=== PATIENT | male | born 1990 | race Two or more races ===

== ENCOUNTER 2018-06-10 00:19 | Emergency (ER) | payer OTHER ==
[~2018-06-10] VITALS: Ht 170.2 cm; Wt 63.5 kg
[2018-06-10] MEDS ORDERED: NKM (00:31)
--- NOTE | 2018-06-10 00:41 | Emergency Room Report ---
History of Present Illness General Chief Complaint: Upper Extremity Injury Source: Patient Present Illness HPI Is a 27-year-old male with no past medical history. He presents with chief complaint of back pain after a fall. He was at work and he slipped on some fabric and fell backward hitting his lower back on the ground. Most of his pain to lower back but he also has neck pain and shoulder pain. No loss of consciousness. No head injury. Pain is 7 out of 10. Worse with movement. Occur couple hours ago. No radiation of pain. Movement made it worse. Allergies: Coded Allergies: No Known Allergies (Unverified , 06/10/18) Patient History Past Medical History: see triage record, old chart reviewed Past Surgical History: none Pertinent Family History: none Social History: Denies: smoking Immunizations: other Reviewed Nursing Documentation: PMH: Agreed; PSxH: Agreed Nursing Documentation-PMH Past Medical History: No Stated History Review of Systems Eye: Denies: eye pain, blurred vision ENT: Denies: ear pain, nose congestion, throat swelling Respiratory: Denies: cough, shortness of breath Cardiovascular: Denies: chest pain, palpitations Gastrointestinal: Denies: abdominal pain, diarrhea, nausea, vomiting Musculoskeletal: Reports: back pain; Denies: joint pain Skin: Denies: rash Neurological: Denies: headache, numbness Endocrine: Denies: increased thirst, increased urine Hematologic/Lymphatic: Denies: easy bruising All Other Systems: negative except mentioned in HPI Physical Exam Vital Signs Date Time Temp Pulse Resp B/P (MAP) Pulse Ox O2 Delivery O2 Flow Rate FiO2 06/10/18 00:26 98.1 65 18 130/67 99 Room Air 98.1 vitals normal Sp02 EP Interpretation: reviewed, normal General Appearance: well appearing, no apparent distress, alert Head: normocephalic, atraumatic Eyes: bilateral eye PERRL, bilateral eye EOMI ENT: hearing grossly normal, normal pharynx Neck: full range of motion, supple, no meningismus Respiratory: chest non-tender, lungs clear, normal breath sounds Cardiovascular #1: regular rate, rhythm, no murmur Gastrointestinal: normal bowel sounds, non tender, no mass, no organomegaly, no bruit, non-distended Musculoskeletal: back normal - no deformity. Tenderness to the lower lumbar area., gait/station normal, normal range of motion Neurologic: alert, oriented x3 Psychiatric: mood/affect normal Skin: warm/dry Medical Decision Making Diagnostic Impression: Primary Impression: Strain of lumbar region Qualified Codes: S39.012A - Strain of muscle, fascia and tendon of lower back , initial encounter Additional Impression: Fall Qualified Codes: W19.XXXA - Unspecified fall, initial encounter ER Course Is without soft tissue injury from mechanical fall. No fracture dislocation. We'll discharge home. Other X-Ray Diagnostic Results Other X-Ray Diagnostic Results : X-Ray ordered: lumbar x-rays # of Views/Limited Vs Complete: 4 View Indication: Pain EP Interpretation: Yes Interpretation: no dislocation, no soft tissue swelling, no fractures Impression: No acute disease Electronically Signed by: Andrea Lopez MD Last Vital Signs Date Time Temp Pulse Resp B/P (MAP) Pulse Ox O2 Delivery O2 Flow Rate FiO2 06/10/18 00:26 98.1 65 18 130/67 99 Room Air 98.1 Status: improved Disposition: HOME, SELF-CARE Condition: Stable Scripts Ibuprofen* (MOTRIN*) 600 Mg Tablet 600 MG ORAL THREE TIMES A DAY, #30 TAB 0 Refills Prov: Andrea Lopez MD 06/10/18 Additional Instructions: Follow-up with your Workmen's [employer]. doctor in 2-3 days. Return if worse. Andrea Lopez MD Jun 10, 2018 00:41
[2018-06-10 00:43] VITALS: BP 130/67
[2018-06-10 00:44] VITALS: BP 130/67
[2018-06-10] MEDS ORDERED: IBUPROFEN600 MG ORAL (01:00)
[2018-06-10 01:09] VITALS: BP 123/72
--- NOTE | 2018-06-10 13:00 | Diagnostic Imaging Report ---
Indication: Lower back trauma, pain Technique: 4 views of the lumbar spine Comparison: None Findings: Bony alignment is normal. Vertebral body heights are preserved. The disc spaces are preserved. No acute fractures. Facet joint spaces are preserved. Sacral iliac joint spaces are preserved. Sacral arches are intact. The extra spinal soft tissues are unremarkable. Impression: Negative
== END 2018-06-10 01:16 | disposition home or self-care (01) ==
LOC: EMR 00:43
DX: S39.012A Strain of muscle, fascia and tendon of lower back, initial encounter (principal); M54.9 Dorsalgia, unspecified; W01.0XXA Fall on same level from slipping, tripping and stumbling without subsequent striking against object, initial encounter; Y93.9 Activity, unspecified; Y92.89 Other specified places as the place of occurrence of the external cause; Y99.8 Other external cause status
CPT/HCPCS: 72110; 99283